=== PATIENT | female | born 1985 | race African-American/Black ===

== ENCOUNTER 2019-11-07 23:18 | Emergency (ER) | payer MEDICAID ==
[~2019-11-07] VITALS: Ht 162.6 cm; Wt 75.0 kg
[2019-11-08] MEDS ORDERED: KETOROLAC 30MG/ML VIAL IM ONE (00:45)
[2019-11-08 00:49] VITALS: BP 136/93
== END 2019-11-08 03:21 | disposition home or self-care (01) ==
LOC: ER 23:18
DX: S20.212A Contusion of left front wall of thorax, initial encounter (principal); W18.39XA Other fall on same level, initial encounter; Y93.89 Activity, other specified; Y92.89 Other specified places as the place of occurrence of the external cause; Y99.8 Other external cause status
CPT/HCPCS: 71100; 93005; 96372; 99283; J1885

== ENCOUNTER 2020-01-16 20:02 | Emergency (ER) | payer MEDICAID, OTHER ==
[~2020-01-16] VITALS: Ht 162.6 cm; Wt 73.0 kg
[2020-01-16 20:55] LABS: CLARITY URINE CLEAR (CLEAR); COLOR URINE YELLOW (YELLOW); KETONES URINE 1+ (NEGATIVE); LEUKOCYTE ESTERASE URINE NEGATIVE (NEGATIVE); NITRITE URINE NEGATIVE (NEGATIVE); OCCULT BLOOD URINE NEGATIVE (NEGATIVE); PH URINE 6.5 (4.5-8.0); PROTEIN URINE NEGATIVE (NEGATIVE); SPECIFIC GRAVITY URINE 1.018 (1.005-1.030); UROBILINOGEN URINE 0.2 E.U./dL (0.2-1.0)
[2020-01-16] MEDS ORDERED: SODIUM CHLORIDE 0.9% 1,000 ML IV ONE (22:31)
[2020-01-16] MEDS ORDERED: ONDANSETRON HCL 4MG/2ML INJ IV STA (22:31)
[2020-01-16] MEDS ORDERED: FAMOTIDINE 20MG/2ML VIAL IV STA (22:31)
[2020-01-16] MEDS ORDERED: ACETAMINOPHEN 650MG/20.3ML UDC PO NR (22:45)
[2020-01-16 23:09] LABS: BASOPHILS % 0.9 % (0.0-2.0); EOSINOPHILS % 1.4 % (0.0-5.0); HEMATOCRIT. 36.1 % (36.0-48.0); HEMOGLOBIN. 12.2 g/dL (12.0-16.0); LYMPHOCYTES % 24.9 % (20.0-50.0); MEAN CORPUSCULAR HEMOGLOBIN 29.9 pg (28.0-32.0); MEAN CORPUSCULAR VOLUME 88.6 fL (81.0-99.0); MEAN PLATELET VOLUME 8.4 fl (7.4-10.4); MONOCYTES % 7.3 % (2.0-8.0); NEUTROPHILS % 65.5 % (40.0-76.0); PLATELET 188 x1000/uL (130-400); RED BLOOD CELL COUNT 4.07 mill/uL (4.2-5.4); RED CELL DISTRIBUTION WIDTH 13.6 % (11.6-14.6)
[2020-01-16 23:13] LABS: CHLORIDE 105 mEq/L (98-107)
[2020-01-16 23:37] LABS: B-HCG QUANTITATIVE 47595 mIU/mL (<3)
[2020-01-17] MEDS ORDERED: METOCLOPRAMIDE HCL 10MG/2ML VIAL IV ONE (00:45)
[2020-01-17 01:01] VITALS: BP 125/80
== END 2020-01-17 01:16 | disposition left against medical advice (07) ==
LOC: ER 20:02
DX: O21.8 Other vomiting complicating pregnancy (principal); Z3A.11 11 weeks gestation of pregnancy
CPT/HCPCS: 36415; 76705; 76801; 80053; 81003; 81025; 83690; 84702; 85025; 96361; 96374; 96375; 99284; J2405; J2765; J3490

== ENCOUNTER 2022-09-11 09:26 | Emergency (ER) | payer MEDICAID ==
[~2022-09-11] VITALS: Ht 177.8 cm; Wt 75.5 kg
[2022-09-11] MEDS ORDERED: ACETAMINOPHEN 325MG TABLET PO ONE (10:30)
[2022-09-11] MEDS ORDERED: KETOROLAC 30MG/ML VIAL IM ONE (13:00)
[2022-09-11] MEDS ORDERED: IBUP-2028 MT (13:28)
[2022-09-11 13:34] VITALS: BP 135/92
== END 2022-09-11 13:57 | disposition home or self-care (01) ==
LOC: ER 09:48
DX: S89.91XA Unspecified injury of right lower leg, initial encounter (principal); Z98.890 Other specified postprocedural states; X58.XXXA Exposure to other specified factors, initial encounter; Y93.89 Activity, other specified; Y92.89 Other specified places as the place of occurrence of the external cause; Y99.8 Other external cause status
CPT/HCPCS: 73552; 73562; 73590; 96372; 99284; J1885